=== PATIENT | female | born 1950 | race Caucasian/White ===

== ENCOUNTER 2020-01-17 08:56 | Emergency (ER) | payer BC, MEDICARE ==
--- NOTE | 2020-01-17 09:32 | RADIOLOGY REPORT (SQ) ---
EXAM DESCRIPTION: CHEST SINGLE VIEW IMAGES COMPLETED DATE/TIME: 01/17/2020 9:23 am REASON FOR STUDY: cp COMPARISON: None. EXAM PARAMETERS: NUMBER OF VIEWS: One view. TECHNIQUE: Single frontal radiographic view of the chest acquired. RADIATION DOSE: NA LIMITATIONS: None. FINDINGS: LUNGS AND PLEURA: No opacities, masses or pneumothorax. No pleural effusion. MEDIASTINUM AND HILAR STRUCTURES: No masses. Contour normal. HEART AND VASCULAR STRUCTURES: Heart normal in size. Normal vasculature. BONES: No acute findings. HARDWARE: None in the chest. OTHER: No other significant finding. IMPRESSION: NO ACUTE RADIOGRAPHIC FINDING IN THE CHEST. TECHNICAL DOCUMENTATION: JOB ID: [id number] 2010 [employer]- All Rights Reserved Reading location - IP/workstation name: [email or web address]
[2020-01-17 09:45] LABS: ABSOLUTE MONOCYTES (AUTO) 0.7 10^3/uL (0.1-1.4); ABSOLUTE NEUT (AUTO) 2.1 10^3/uL (1.7-8.2); BASOPHILS % (AUTO) 0.7 % (0-2); EOSINOPHILS % (AUTO) 0.6 % (0-6); HEMATOCRIT 31.8 % (36.0-47.0); HEMOGLOBIN 10.9 g/dL (12.0-15.5); LYMPHOCYTES % (AUTO) 26.5 % (13-45); MEAN CORPUSCULAR HEMOGLOBIN 30.2 pg (27.0-33.4); MEAN CORPUSCULAR HGB CONC 34.4 g/dL (32.0-36.0); MEAN CORPUSCULAR VOLUME 88 fl (80-97); MONOCYTES % (AUTO) 17.9 % (3-13); PLATELET COUNT 226 10^3/uL (150-450); RED BLOOD COUNT 3.62 10^6/uL (3.72-5.28); RED CELL DISTRIBUTION WIDTH 13.8 % (11.5-14.0); SEGMENTED NEUTROPHILS % (AUTO) 54.3 % (42-78); TOTAL CELLS COUNTED % (AUTO) 100 %; WHITE BLOOD COUNT 3.9 10^3/uL (4.0-10.5)
[2020-01-17 09:46] LABS: ALBUMIN 3.7 g/dL (3.5-5.0); ALKALINE PHOSPHATASE 59 U/L (38-126); ASPARTATE AMINO TRANSFERASE 22 U/L (14-36); BILIRUBIN,DIRECT 0.3 mg/dL (0.0-0.4); BILIRUBIN,TOTAL 0.4 mg/dL (0.2-1.3); BLOOD UREA NITROGEN 9 mg/dL (7-20); CALCIUM 8.7 mg/dL (8.4-10.2); CARBON DIOXIDE 26 mmol/L (22-30); CHLORIDE 102 mmol/L (98-107); CREATINE KINASE 65 U/L (30-135); GLUCOSE 117 mg/dL (75-110); POTASSIUM 4.1 mmol/L (3.6-5.0); TOTAL PROTEIN 6.4 g/dL (6.3-8.2)
[2020-01-17 09:47] LABS: ANION GAP 4 (5-19)
[2020-01-17 10:01] LABS: CREATINE KINASE MB 0.46 ng/mL (<4.55)
[2020-01-17 10:08] LABS: TROPONIN I < 0.012 ng/mL
--- NOTE | 2020-01-17 10:34 | ER Document Report ---
ED General - General Stated Complaint: CHEST PAIN/HEADACHE Time Seen by Provider: 01/17/20 09:35 Primary Care Provider: DORINDA ZARAGOZA MD [ACTIVE STAFF] - Follow up as needed - HPI Notes: Patient is a 69-year-old female presents the emergency department for evaluation. She states that she was woken from sleep at approximately 630 this morning with a sharp chest pain. Is in her left side. It radiated into her left arm. She has had pain similar in the past, but it never lasted. She had some associated nausea. She denies any associated diaphoresis, shortness of breath, near syncope. She did not vomit. She also states she had a headache last night, that was like a "vice newspaper or periodical editor" around her entire head. It was present with her this morning when she had her chest pain as well. She called 911, was administered nitroglycerin, her pain resolved. She actually has no complaints at this time. Her headache has resolved. Her chest pain has resolved. She states her left hand "feels a bit tingly" but otherwise no other abnormalities. She has been taking her medications as prescribed. The patient had a stress test in the past, but it was approximately 10 to 15 years ago. She does follow with cardiology in [place]. - Related Data Allergies/Adverse Reactions: Penicillins Allergy (Verified 01/17/20 09:26) Home Medications: cyclobenzapine. levothryxine. vitamin d3. cephalexin. tramadol. letrozole. tramadol Past Medical History - General Information source: Patient - Social History Smoking Status: Former Smoker Family History: CAD, DM, Malignancy - Past Medical History Cardiac Medical History: Reports: Hx Peripheral Vascular Disease Endocrine Medical History: Reports: Hx Hypothyroidism Malignancy Medical History: Reports: Hx Breast Cancer Review of Systems - Review of Systems Constitutional: No symptoms reported EENT: No symptoms reported Cardiovascular: See HPI Respiratory: No symptoms reported Gastrointestinal: See HPI Genitourinary: No symptoms reported Musculoskeletal: No symptoms reported Skin: No symptoms reported Neurological/Psychological: See HPI -: Yes All other systems reviewed and negative Physical Exam - Vital signs Vitals: Resp BP Pulse Ox 12 134/82 H 87 L 01/17/20 09:03 01/17/20 09:03 01/17/20 09:03 - Notes Notes: This is a very pleasant 69-year-old female who appears her stated age, no acute distress. Vital signs reviewed, please refer to chart. Head is normocephalic, atraumatic. Pupils equal round, reactive to light. Neck is supple without meningismus. Heart is regular rate and rhythm. Lungs are clear to auscultation bilaterally. Abdomen is soft, nontender, normoactive bowel sounds throughout. Extremities without cyanosis, clubbing. Posterior calves are nontender. Peripheral pulses are equal. Skin is warm and dry. Patient is awake, alert, oriented x3. Cranial nerves II - XII are grossly intact without focal neurological deficits. Strength is plus 5 out of 5 bilateral upper and lower extremities. Sensation is intact. Reflexes symmetrical. Intact [id number], rapid alternating movements, [id number]. Course - Re-evaluation Re-evalutation: 01/17/20 10:32 Patient presents to the emergency department for evaluation. Laboratory investigations were ordered. Patient was placed on a optical engineering manager. She was placed on oxygen per nasal cannula as her room air saturation was noted to be slightly low. Patient's lungs are clear and her chest x-ray is unremarkable. We will have this rechecked off oxygen. Currently patient is pain-free, symptom-free. She has a normal neurological exam. Awaiting second troponin. We will continue to monitor. 01/17/20 13:26 Patient remained chest pain-free throughout the course of her stay. Her second troponin is undetectable. She is to contact her front end loader operator for close follow- up. She is to return to the ED with worsening or new concerning symptoms of any sort. - Vital Signs Vital signs: Temp Pulse Resp BP Pulse Ox 13 128/78 H 94 01/17/20 13:01 01/17/20 13:01 01/17/20 13:01 - Laboratory Result Diagrams: 01/17/20 09:10 01/17/20 09:10 Laboratory results interpreted by me: 01/17/20 01/17/20 09:10 09:10 WBC 3.9 L RBC 3.62 L Hgb 10.9 L Hct 31.8 L Stevens % (Auto) 17.9 H Sodium 132.2 L Anion Gap 4 L Glucose 117 H - Diagnostic Test Radiology reviewed: Reports reviewed Radiology results interpreted by me: 01/17/20 10:33 Chest X-Ray 01/17/20 08:57 IMPRESSION: NO ACUTE RADIOGRAPHIC FINDING IN THE CHEST. - EKG Interpretation by Me Additional EKG results interpreted by me: 01/17/20 10:33 Sinus mechanism with a rate of 87 bpm. Normal axis and intervals. Nonspecific, diffuse ST and T wave changes. No acute ST elevation concerning for infarction. No old studies available for comparison. Discharge - Discharge Clinical Impression: Chest pain Qualifiers: Chest pain type: unspecified Qualified Code(s): R07.9 - Chest pain, unspecified Condition: Stable Disposition: HOME, SELF-CARE Instructions: Chest Pain of Unclear Cause ([facility]) Additional Instructions: No clear cause was identified for your chest pain today. Your EKG was unremarkable. Your cardiac enzymes were negative twice. Please follow-up with primary care, and contact your front end loader operator this afternoon for close follow-up. Return to the emergency department with worsening or new concerning symptoms of any sort. Referrals: DORINDA ZARAGOZA MD [ACTIVE STAFF] - Follow up as needed
[2020-01-17 13:07] VITALS: BP 128/78
--- NOTE | 2020-01-17 18:01 | EKG REPORT ---
SEVERITY:- BORDERLINE ECG - SINUS RHYTHM BORDERLINE T ABNORMALITIES, DIFFUSE LEADS : Confirmed by: Oliver Pierre MD 17-Jan-2020 17:59:54
== END 2020-01-17 13:52 | disposition home or self-care (01) ==
LOC: ER 08:56
DX: R07.9 Chest pain, unspecified (principal); R11.0 Nausea; R51.9 Headache, unspecified; R20.2 Paresthesia of skin; E03.9 Hypothyroidism, unspecified; C50.919 Malignant neoplasm of unspecified site of unspecified female breast; Z79.899 Other long term (current) drug therapy; Z79.2 Long term (current) use of antibiotics; Z87.891 Personal history of nicotine dependence
CPT/HCPCS: 36415; 71045; 80053; 82550; 82553; 84484; 85025; 93005; 93010; 99285